=== PATIENT | male | born 1995 | race Caucasian/White ===

== ENCOUNTER 2017-02-17 05:32 | Emergency (ER) | payer OTHER ==
[~2017-02-17] VITALS: Ht 170.2 cm; Wt 115.5 kg
[~2017-02-17 05:32] MED LIST: IBUP400T22 PO
[2017-02-17 05:35] VITALS: Ht 170.2 cm; Wt 115.5 kg
[2017-02-17] MEDS ORDERED: LIDOCAINE 2% (MDV) 20 ML INJ INJ STA (06:31)
--- NOTE | 2017-02-17 07:59 | ERA ---
ER Documentation Chief Complaint Date/Time DATE: 02/17/17 TIME: 07:54 Chief Complaint left 5th digit lacercation x 30 min [employer] HPI This is a 21-year-old otherwise healthy male presenting one hour status post laceration to the left second digit of hand on the palmar side. Patient has not taken any medications to relieve symptoms. Denies numbness, tingling, decreased/loss of motion, or injury to other areas. Tetanus status is up-to- date. ROS All systems reviewed and are negative except as per history of present illness. Medications Home Meds Active Scripts Cephalexin* (Keflex*) 500 Mg Capsule, 500 MG PO QID for 5 Days, CAP Prov:ERNESTINA BALLESTEROS PA-C 02/17/17 Hydrocodone/Acetaminophen ([place] 5-325 Tablet) 1 Each Tablet, 1 TAB PO Q6H Y for PAIN, #7 TAB Prov:ERNESTINA BALLESTEROS PA-C 02/17/17 Ibuprofen* (Motrin*) 400 Mg Tab, 400 MG PO Q6, #30 TAB 0 Refills Prov:AMAIRANI ARMENDARIZ PA-C 11/11/15 Allergies Allergies: Coded Allergies: No Known Allergy (Unverified , 11/11/15) PMhx/Soc History of Surgery: No Anesthesia Reaction: No Hx Neurological Disorder: No Hx Respiratory Disorders: No Hx Cardiac Disorders: No Hx Psychiatric Problems: No Hx Miscellaneous Medical Probl: No Hx Alcohol Use: No Hx Substance Use: No Hx Tobacco Use: No Physical Exam Vitals Physical Exam Const: Healthy-appearing. Well-nourished. Well-developed. No acute distress. Skin: Laceration of the left hand, palmar side of second digit. Laceration spans approximately 1 cm distal and medial then traveling 2-3 cm distal and radial. Pulsating blood seen. No petechiae or rashes. No ulcer, induration, jaundice. Good turgor. Head: Normocephalic, Atraumatic. Eyes: Non-injected; No scleral erythema, discharge or foreign body. EOMI and BALDEMAR bilaterally. Ears: Normal External Ears, EACs clear, TM normal bilaterally without erythema. Nose: Normal nose without discharge, septal deviation, or sinus tenderness. Oral: No oral edema visualized. Mucous membranes moist and pink. Neck: No cervical lymphadenopathy, masses or goiter palpated. Trachea midline. Supple ~ No meningismus. Pulm: Good air movement in upper and lower respiratory tracts. No dyspnea, stridor, tripoding or drooling. Clear to auscultation bilaterally. Cardio: Regular rate and rhythm; No murmurs, gallops or rubs auscultated. No JVD grossly observed. Radial and posterior tibial pulses 2+ bilaterally. No cyanosis. Capillary refill less than 2 seconds. Abd: Soft, non tender, non distended. No guarding, masses. Normal bowel sounds. No McBurney's point tenderness. MS: Normal motor strength, normal tone with gross examination. Back: No midline, flank or CVA tenderness. Ext: No cyanosis, edema or palpable cord. Neur: Awake, alert and oriented x3. Neurovascularly intact bilaterally. Psych: Normal Mood and Affect. Back: No midline, flank or CVA tenderness. Ext: No cyanosis, edema or palpable cord. Neur: Awake, alert and oriented x3. Neurovascularly intact bilaterally. Psych: Normal Mood and Affect. Results 24 hrs Current Medications Medications (Trade) Dose Ordered Sig/Gallo Route PRN Reason Start Time Stop Time Status Last Admin Dose Admin Lidocaine (Xylocaine 2% (Mdv) 20 ml) 20 ml ONCE STAT INJ 02/17/17 06:31 02/17/17 06:32 DC Lidocaine (Xylocaine 2% (Mdv) 20 ml) 20 ml ONCE ONCE INJ 02/17/17 08:30 02/17/17 08:31 DC Procedures/MDM Patient presents with a second digit laceration as described in the history and physical examination. Tetanus status is up-to-date. X-rays are not indicated as I have little suspicion for bony pathology. The laceration was irrigated with normal saline and cleaned by the nursing staff. Iodine was used to sterilize the affected area. 3 mL of lidocaine 2% without epinephrine was used. There were no foreign bodies found with exploration. The laceration was then repaired with 3-0 chromic gut figure [address] Bill to reduce the arterial bleeding then 6-0 nylon 5 simple sutures placed without complication. The wound was well approximated and there was adequate eversion. There were no complications during the proceeder. Neurovascular status was reevaluated post procedure, and remained unchanged. They were then educated on wound care and warning signs of complications, and instructed to follow up in 2 days for a wound check. They verbally stated that they understand the plan of management. I have a very low suspicion at this time for infection, compartment syndrome, fracture or neurovascular compromise. The area was then washed and bacitracin applied by the nursing staff. Sterile gauze was used to cover the area. My attending has evaluated the patient is agreed with the assessment and plan. The patient is otherwise healthy and did not sustain a dirty or deep wound; thus , at this time antibiotics are not necessary. The patient will however be discharged with Keflex and 3 days [place] p.o. Patient will be discharged home with instructions and return precautions for infection. Patient is verbally responded that he understands plan of management including the necessity for follow-up and possible return for signs of infection and other complications that were discussed and acknowledged. Departure Diagnosis: Primary Impression: Laceration Condition: Stable Additional Instructions: You were seen in the emergency department for your laceration which has been closed. Your wound has been cleaned and covered with antibiotic ointment. Please keep this dressing on for 12 hours. After 12 hours take the dressing down and gently clean the wound with ONLY soap and water. If you were given antibiotics, complete the course of treatment as prescribed. Look for signs of infection such as increasing redness, swelling, pain or drainage of pus (yellow/ green fluid). If you see signs of infection, please return to the emergency department immediately. If there are no signs of infection, cover your wound with antibiotic ointment and reapply a dressing. You will form a scar. To keep from scarring too dark, keep your wound covered and out of the sun for the next 6-12 months. Consider using OTC anti-scar creams such as Mederma. Return to the ED for a wound check in 2 days and again for suture removal in 10-14 days. ERNESTINA BALLESTEROS PA-C Feb 17, 2017 07:58
[2017-02-17] MEDS ORDERED: LIDOCAINE 2% (MDV) 20 ML INJ INJ ONE (08:30)
[2017-02-17] MEDS ORDERED: HYDR-906 PO (09:09)
[2017-02-17] MEDS ORDERED: CEPH-443 PO (09:09)
== END 2017-02-17 09:23 | disposition home or self-care (01) ==
LOC: FTE 05:32
DX: S61.215A Laceration without foreign body of left ring finger without damage to nail, initial encounter (principal); X58.XXXA Exposure to other specified factors, initial encounter; Y92.9 Unspecified place or not applicable
CPT/HCPCS: 12031; Z7610